=== PATIENT | female | born 1975 | race Caucasian/White ===

== ENCOUNTER 2020-10-12 19:58 | Emergency (ER) | payer BC ==
[~2020-10-12] VITALS: Ht 172.7 cm; Wt 117.5 kg
[2020-10-12] MEDS ORDERED: LIDO:MAALOX 1:1 20 ML SINGLE DOSE. PO ONE (20:15)
--- NOTE | 2020-10-12 20:19 | PHYS DOC ---
Past History Past Surgical History: , Hysterectomy (TANNER HUMMEL APRN) Alcohol Use: None (TANNER HUMMEL APRN) General Adult EDM: Chief Complaint: CHEST PAIN HPI: HPI: Patient is a 44-year-old female being seen in the ER today for chest pain with lightheadedness and nausea that started Thursday. She reports frequent belching. She is also reporting headache and congestion. She is vaccinated for COVID-19 but would like to be tested. Patient reports that the location of her chest pain is in her midsternal region she describes it as a burning pain. She is unable to rate the pain. It does not radiate. She reports no alleviating factors but reports it is worse when she thinks about it. Patient denies shortness of breath, cough, vomiting, fevers. Patient has no significant medical history. (TANNER HUMMEL APRN) Review of Systems: Review of Systems: 14 body systems of the review of systems have been reviewed. See HPI for pertinent positive and negative responses, otherwise all other systems are negative, nonpertinent or noncontributory (TANNER HUMMEL APRN) Allergies: Allergies: Allergies Coded Allergies Type Severity Reaction Last Updated Verified Penicillins Allergy Unknown 10/12/20 Yes (TANNER HUMMEL APRN) Physical Exam: PE: Constitutional: Well developed, well nourished, no acute distress, non-toxic appearance. [] HENT: Normocephalic, atraumatic Eyes: PERRL, conjunctiva normal, no discharge. [] Neck: Normal range of motion, no stridor Cardiovascular:Heart rate tachycardic rhythm, no murmur [] Lungs & Thorax: Bilateral breath sounds clear to auscultation [] Abdomen: Bowel sounds normal, soft, no tenderness, no masses, no pulsatile masses. [] Skin: Warm, dry, no erythema, no rash. [] Back: Normal range of motion Extremities: No tenderness, no cyanosis, no clubbing, ROM intact, no edema. [] Neurologic: Alert and oriented X 3, normal motor function, normal sensory function, no focal deficits noted. [] Psychologic: Affect normal, judgement normal, mood normal. [] (TANNER HUMMEL APRN) Current Patient Data: Vital Signs: Vital Signs Date Time Temp Pulse Resp B/P (MAP) Pulse Ox O2 Delivery O2 Flow Rate FiO2 10/12/20 20:03 98.6 105 16 144/102 100 Room Air (TANNER HUMMEL APRN) EKG: EKG: EKG performed by ER staff at 2003 shows sinus tachycardia, no STEMI read by Dr. Ovalles 2007 [] (TANNER HUMMEL APRN) Radiology/Procedures: Radiology/Procedures: PROCEDURE: CHEST AP ONLY Exam: Chest one view INDICATION: Chest pain TECHNIQUE: Frontal view of the chest Comparisons: None FINDINGS: The cardiomediastinal silhouette and pulmonary vessels are within normal limits. The lung and pleural spaces are clear. IMPRESSION: No acute cardiopulmonary process. Electronically signed by: James Riojas MD (10/12/2020 9:21 PM) [facility] DICTATED AND SIGNED BY: JAMES RIOJAS MD DATE: 10/12/202119 CC: TANNER HUMMEL APRN; SALOME CLAYTON ~MTH0 0 [] (TANNER HUMMEL APRN) Heart Score: C/O Chest Pain: Yes HEART Score for Chest Pain: HEART Score for Chest Pain Response (Comments) Value History Slighlty/Non-Suspicious 0 ECG Normal 0 Age < 45 0 Risk Factors 1 or 2 Risk Factors 1 Troponin < Normal Limit 0 Total 1 Risk Factors: Risk Factors: DM, Current or recent (<one month) smoker, HTN, HLP, family history of CAD, obesity. Risk Scores: Score 0 - 3: 2.5% MACE over next 6 weeks - Discharge Home Score 4 - 6: 20.3% MACE over next 6 weeks - Admit for Clinical Observation Score 7 - 10: 72.7% MACE over next 6 weeks - Early Invasive Strategies (TANNER HUMMEL APRN) Course & Med Decision Making: Course & Med Decision Making Pertinent Labs and Imaging studies reviewed. (See chart for details) [] Patient is a 44-year-old female being seen in the ER today for chest pain. Work-up included blood work, EKG, chest x-ray. Patient was treated with a GI cocktail due to her burning sensation in her chest and had frequent belching. CBC and CMP unremarkable. Patient had a negative troponin. EKG shows sinus tach with no STEMI. Chest x-ray unremarkable. Patient reports that the GI cocktail did help with her belching and her burning sensation in her chest. Patient's vital signs are stable at this time. Her heart rate has decreased to 86 bpm. Patient expressed that she thinks her chest pain may be due to anxiety. Patient does have a history of anxiety and has been previously prescribed Xanax but has not taken it. I discussed with patient all findings and diagnostic testing as well as the need to follow-up with PCP for further evaluation and treatment or return to the ER if any new or worsening symptoms. Strict return precautions were also discussed at length. Patient voiced underst anding and agreement with the plan. Patient is hemodynamically stable at the time of disposition. (TANNER HUMMEL APRN) Dragon Disclaimer: Dragon Disclaimer: This electronic medical record was generated, in whole or in part, using a voice recognition dictation system. (TANNER HUMMEL APRN) Attending Co-Sign The patient was seen and interviewed as well as examined at the bedside. The chart was reviewed. The case was discussed. Agree with the plan of care. (HEIDI OVALLES DO) Departure Departure: Impression: Primary Impression: Atypical chest pain Disposition: 01 HOME / SELF CARE / HOMELESS Condition: GOOD Referrals: SALOME CLAYTON (PCP) Patient Instructions: Anxiety and Panic Attacks, Chest Pain (Nonspecific) Additional Instructions: You were seen in the ER today for chest pain accompanied by nausea, headache, lightheadedness. Your work-up in the ER was unremarkable as we discussed. Your symptoms were treated with a GI cocktail. You reported feeling improvement in your symptoms. He did state that thinking about your chest pain makes it worse. It is possible that there is an anxiety component to your chest pain. You can take your anxiety medication as previously prescribed if you tolerate them. You were tested for COVID-19 today. You received those results in 24 to 48 hours. Please self isolate until you receive these results. If you develop worsening of your chest pain, shortness of breath, severe cough, palpitations, high fevers refractory to treatment, lightheadedness, or you pass out return to the ER immediately. EMERGENCY DEPARTMENT GENERAL DISCHARGE INSTRUCTIONS Thank you for coming to [facility] (ED) today and trusting us with you care. We trust that you had a positivie experience in our Emergency Department. If you wish to speak to the department management, you may call the director at [phone]. YOUR FOLLOW UP INSTRUCTIONS ARE FOLLOWS: 1. Do you have a private Doctor? If you do not have a private doctor, please ask for a resource list of physicians or clinics that may be able to assist you with follow up care. 2. The Emergency Physician has interpreted your x-rays. The X-Ray specialist will also review them. If there is a change in the findings, you will be notified in 48 hours when at all possible. 3. A lab test or culture has been done, your results will be reviewed and you will be notified if you need a change in treatment. ADDITIONAL INSTRUCTIONS AND INFORMATION: 1. Your care today has been supervised by a physician who is specially trained in emergency care. Many problems require more than one evaluation for a complete diagnosis and treatment. We recommend that you schedule your follow up appointment as recommended to ensure complete treatment of you illness or injury. If you are unable to obtain follow up care and continue to have a problem, or if your condition worsens, we recommend that you return to the ED. 2. We are not able to safely determine your condition over the phone nor are we able to give sound medical advice over the phone. For these safety reasons, if you call for medical advice we will ask you to come to the ED for further evaluation. 3. If you have any questions regarding these discharge instructions please call the ED at [phone]. SAFETY INFORMATION: In the interest of safety, wellness, and injury prevention; we encourage you to wear your sealbelt, if you smoke; quite smoking, and we encourage family to use a protective helmet for bicycling and other sporting events that present an increased risk for head injury. IF YOUR SYMPTOMS WORSEN OR NEW SYMPTOMS DEVELOP, OR YOU HAVE CONCERNS ABOUT YOUR CONDITION; OR IF YOUR CONDITION WORSENS WHILE YOU ARE WAITING FOR YOUR FOLLOW UP APPOINTMENT; EITHER CONTACT YOUR PRIMARY CARE DOCTOR, THE PHYSICIAN WHOSE NAME AND NUMBER YOU WERE GIVEN, OR RETURN TO THE ED IMMEDIATELY. TANNER HUMMEL APRN Oct 12, 2020 20:19 HEIDI OVALLES DO Oct 14, 2020 05:33
[2020-10-12 20:43] LABS: BASO # 0.1 x10^3/uL (0.0-0.2); BASO % 1 % (0-3); EOS # 0.1 x10^3/uL (0.0-0.7); EOS % 1 % (0-3); HEMATOCRIT 41.6 % (36.0-47.0); HEMOGLOBIN 13.7 g/dL (12.0-15.5); LYMPH # 2.3 x10^3/uL (1.0-4.8); LYMPH % 21 % (24-48); MEAN CORPUSCULAR HEMOGLOBIN 27 pg (25-35); MEAN CORPUSCULAR HGB CONC 33 g/dL (31-37); MEAN CORPUSCULAR VOLUME 82 fL (79-100); MONO # 0.7 x10^3/uL (0.0-1.1); MONO % 7 % (0-9); NEUT % 71 % (31-73); PLATELET COUNT 283 x10^3/uL (140-400); RED CELL DISTRIBUTION WIDTH 14.6 % (11.5-14.5); WHITE BLOOD COUNT 11.2 x10^3/uL (4.0-11.0)
[2020-10-12 20:53] LABS: GFR 60.8; POTASSIUM 3.8 mmol/L (3.5-5.1)
[2020-10-12 20:57] LABS: ALBUMIN 3.5 g/dL (3.4-5.0); ALBUMIN/GLOBULIN RATIO 1.2 (1.0-1.7); TOTAL BILIRUBIN 0.3 mg/dL (0.2-1.0); TOTAL PROTEIN 6.4 g/dL (6.4-8.2)
[2020-10-12 21:01] VITALS: BP 152/92
--- NOTE | 2020-10-12 21:23 | RAD ---
Exam: Chest one view INDICATION: Chest pain TECHNIQUE: Frontal view of the chest Comparisons: None FINDINGS: The cardiomediastinal silhouette and pulmonary vessels are within normal limits. The lung and pleural spaces are clear. IMPRESSION: No acute cardiopulmonary process. Electronically signed by: James Saleh MD (10/12/2020 9:21 PM) [facility]
--- NOTE | 2020-10-12 23:00 | EKG ---
[address] [address] Test Date: 2020-10-12 Test Time: 20:04:03 Pat Name: KIMBERLY RAZA Department: Room: Gender: F Junior Legal Secretary: : [id number] Requested By: TANNER HUMMEL Order Number: [id number] Reading MD: Measurements Intervals [place] Rate: 107 P: 72 NM: 156 QRS: 48 QRSD: 80 T: 15 QT: 328 QTc: 443 Interpretive Statements SINUS TACHYCARDIA OTHERWISE NORMAL ECG RI6.02 No previous ECG available for comparison
== END 2020-10-12 21:33 | disposition home or self-care (01) ==
LOC: ER 19:58
DX: R07.2 Precordial pain (principal); R51.9 Headache, unspecified; Z20.822 Contact with and (suspected) exposure to COVID-19; Z88.0 Allergy status to penicillin
CPT/HCPCS: 71045; 80053; 84484; 85025; 93005; 99285; C9803; U0003